=== PATIENT | female | born 1990 | race Caucasian/White ===

== ENCOUNTER 2017-09-24 13:01 | Outpatient (CLI) | payer BC ==
[~2017-09-24] VITALS: Ht 177.8 cm; Wt 109.1 kg
[2017-09-24] MEDS ORDERED: PREN1TAB60 PO (13:10)
[2017-09-24 13:11] VITALS: BP 121/76
[2017-09-24] MEDS ORDERED: METOCLOPRAMIDE 5 MG/ML, 2ML IVPush PRN (14:00)
[2017-09-24] MEDS ORDERED: D5%-LACTATED RINGERS 1,000 ML IV SCH (14:00)
[2017-09-24] MEDS ORDERED: LACTATED RINGERS 1,000 ML IVBOLUS ONE (14:00)
[2017-09-24 14:24] LABS: BASOPHILS # (AUTO) 0.02 x10^3/uL (0-0.1); BASOPHILS % (AUTO) 0 % (0-1); EOSINOPHILS # (AUTO) 0.07 x10^3/uL (0-0.4); EOSINOPHILS % (AUTO) 1 % (1-7); LYMPHOCYTES # (AUTO) 1.14 x10^3/uL (1-3.4); LYMPHOCYTES % (AUTO) 15 % (22-44); MD NO; MEAN CORPUSCULAR HEMOGLOBIN 30.2 pg (27.0-34.8); MEAN CORPUSCULAR HGB CONC 33.6 g/dL (32.4-35.8); MEAN CORPUSCULAR VOLUME 89.8 fL (80-100); MEAN PLATELET VOLUME 8.8 fL (7.4-10.4); MONOCYTES # (AUTO) 0.36 x10^3/uL (0.2-0.8); MONOCYTES % (AUTO) 5 % (2-9); NEUTROPHILS # (AUTO) 6.23 x10^3/uL (1.8-6.8); NEUTROPHILS % (AUTO) 80 % (42-75); PLATELET COUNT 209 x10^3/uL (130-400); RED BLOOD COUNT 4.25 x10^6/uL (3.82-5.3); RED CELL DISTRIBUTION WIDTH 13.3 % (9.6-15.2)
[2017-09-24 14:26] LABS: ALBUMIN 2.6 g/dL (3.4-5.0); ANION GAP 10 mmol/L (5-15); CALCIUM 7.8 mg/dL (8.5-10.1); CHLORIDE 105 mmol/L (98-107)
[2017-09-24 14:29] LABS: ALANINE AMINOTRANSFERASE 35 U/L (12-78); ALKALINE PHOSPHATASE 61 U/L (45-117); BILIRUBIN,TOTAL 0.4 mg/dL (0.2-1.0); CREATININE 0.49 mg/dL (0.55-1.02); TOTAL PROTEIN 6.7 g/dL (6.4-8.2)
[2017-09-24 15:22] LABS: MICROSCOPIC INDICATED
[2017-09-24] MEDS ORDERED: CEFAZOLIN 1,000 MG IVPB ONE (16:30)
[2017-09-24] MEDS ORDERED: CEFAZOLIN PMX 2GM/100ML 100 ML IVPB ONE (17:30)
[2017-09-24] MEDS ORDERED: CEFAZOLIN 1,000 MG in DEXTROSE 5% 50 ML IV ONE (17:30)
== END 2017-09-24 19:05 | disposition home or self-care (01) ==
LOC: LDOP 13:01
PROVIDERS: ATTEND Obstetrics & Gynecology
DX: O21.2 Late vomiting of pregnancy (principal); O26.893 Other specified pregnancy related conditions, third trimester; R19.7 Diarrhea, unspecified; Z3A.29 29 weeks gestation of pregnancy
CPT/HCPCS: 36415; 59025; 80053; 81001; 81003; 82731; 85025; 87086; 96360; 96361; J0690; J7120; 99201; G0463; J7121

== ENCOUNTER 2017-11-23 10:20 | Outpatient (CLI) | payer BC ==
[~2017-11-23] VITALS: Ht 177.8 cm; Wt 109.1 kg
[~2017-11-23 10:20] MED LIST: PREN1TAB60 PO
[2017-11-23 10:40] VITALS: BP 126/82
== END 2017-11-23 11:11 | disposition home or self-care (01) ==
LOC: LDOP 10:20
PROVIDERS: ATTEND Obstetrics & Gynecology
DX: O36.8130 Decreased fetal movements, third trimester, not applicable or unspecified (principal); Z3A.38 38 weeks gestation of pregnancy
CPT/HCPCS: 59025; 99211; G0463

== ENCOUNTER 2017-11-30 01:11 | Inpatient (IN) | payer BC ==
[~2017-11-30] VITALS: Ht 177.8 cm; Wt 113.0 kg
[2017-11-30] MEDS ORDERED: OXYTOCIN 30U/ 0.9% NaCL 500ML 500 ML IV ONE (01:29)
[2017-11-30] MEDS: LACTATED RINGERS 1,000 ML IV SCH ×4 (01:29→10:28)
[2017-11-30] MEDS ORDERED: SODIUM CITRATE/CITRIC ACID 30 ML UDC PO PRN (01:30)
[2017-11-30] MEDS ORDERED: FENTANYL PF 100 MCG/2ML IVPush PRN (01:30)
[2017-11-30] MEDS ORDERED: METOCLOPRAMIDE 5 MG/ML, 2ML IVPush PRN (01:30)
[2017-11-30] MEDS ORDERED: ONDANSETRON 2MG/ML, 2ML IVPush PRN (01:30)
[2017-11-30] MEDS ORDERED: FENTANYL PF 100 MCG/2ML IV PRN (01:30)
[2017-11-30] MEDS ORDERED: CALCIUM CARBONATE 500 MG TAB.CHEW PO PRN (01:30)
[2017-11-30] MEDS ORDERED: NEWBORN KIT ONE (01:34)
[2017-11-30] MEDS ORDERED: FENTANYL PF 100 MCG/2ML ONE (01:50)
[2017-11-30 02:01] LABS: BASOPHILS # (AUTO) 0.04 x10^3/uL (0-0.1); BASOPHILS % (AUTO) 0 % (0-1); EOSINOPHILS # (AUTO) 0.12 x10^3/uL (0-0.4); EOSINOPHILS % (AUTO) 1 % (1-7); LYMPHOCYTES # (AUTO) 2.72 x10^3/uL (1-3.4); LYMPHOCYTES % (AUTO) 21 % (22-44); MD NO; MEAN CORPUSCULAR HEMOGLOBIN 30.6 pg (27.0-34.8); MEAN CORPUSCULAR HGB CONC 34.3 g/dL (32.4-35.8); MEAN CORPUSCULAR VOLUME 89.1 fL (80-100); MEAN PLATELET VOLUME 8.9 fL (7.4-10.4); MONOCYTES # (AUTO) 0.56 x10^3/uL (0.2-0.8); MONOCYTES % (AUTO) 4 % (2-9); NEUTROPHILS # (AUTO) 9.32 x10^3/uL (1.8-6.8); NEUTROPHILS % (AUTO) 73 % (42-75); PLATELET COUNT 228 x10^3/uL (130-400); RED BLOOD COUNT 4.33 x10^6/uL (3.82-5.3); RED CELL DISTRIBUTION WIDTH 14.2 % (9.6-15.2)
[2017-11-30 02:05] VITALS: BP 144/98
[2017-11-30] MEDS ORDERED: FENTANYL/BUPIV./NS/PF 250 ML EPIDCONT SCH (02:28)
[2017-11-30] MEDS ORDERED: NALOXONE 0.4 MG/ML, 1ML IVPush PRN (02:30)
[2017-11-30] MEDS ORDERED: EPHEDRINE 50 MG/ML, 1ML IVPush PRN (02:30)
[2017-11-30] MEDS ORDERED: LACTATED RINGERS 1,000 ML IVBOLUS PRN (02:30)
[2017-11-30] MEDS ORDERED: FENTANYL/BUPIV./NS/PF 250 ML EPIDCONT ONE (02:31)
[2017-11-30] MEDS ORDERED: BUPIVACAINE/PF 0.25% ONE (02:31)
[2017-11-30] MEDS ORDERED: OXYTOCIN 30U/ 0.9% NaCL 500ML 500 ML ONE ×2 (03:21→17:34)
[2017-11-30] MEDS: D5%-LACTATED RINGERS 1,000 ML IV SCH ×2 (07:30→09:29)
[2017-11-30] MEDS ORDERED: ONDANSETRON ODT 4 MG ONE (13:23)
[2017-11-30] MEDS: IBUPROFEN 600 MG TABLET PO PRN ×2 (15:40→23:00)
[2017-11-30] MEDS ORDERED: IBUPROFEN 600 MG TABLET ONE (15:42)
[2017-11-30] MEDS: OXYTOCIN 30U/ 0.9% NaCL 500ML 500 ML IV SCH (15:43)
[2017-11-30] MEDS ORDERED: MISOPROSTOL 200 MCG TABLET PR PRN (16:00)
[2017-11-30] MEDS ORDERED: ACETAMINOPHEN 325 MG TABLET PO PRN ×2 (16:00)
[2017-11-30] MEDS ORDERED: HYDROcodone/APAP 5/325 TABLET PO PRN ×2 (16:00)
[2017-11-30] MEDS ORDERED: ONDANSETRON ODT 4 MG PO ONE (16:30)
[2017-11-30 17:53] VITALS: BP 117/77
[2017-11-30 19:25] VITALS: BP 128/78
[2017-11-30] MEDS: DOCUSATE 100 MG CAPSULE PO PRN (22:59)
[2017-11-30 23:46] VITALS: BP 95/58
[2017-12-01] MEDS: OXYTOCIN 30U/ 0.9% NaCL 500ML 500 ML IV SCH ×2 (01:43→11:43)
[2017-12-01 03:00] VITALS: BP 114/74
[2017-12-01 06:09] LABS: BASOPHILS # (AUTO) 0.03 x10^3/uL (0-0.1); BASOPHILS % (AUTO) 0 % (0-1); EOSINOPHILS # (AUTO) 0.07 x10^3/uL (0-0.4); EOSINOPHILS % (AUTO) 1 % (1-7); LYMPHOCYTES # (AUTO) 2.57 x10^3/uL (1-3.4); LYMPHOCYTES % (AUTO) 18 % (22-44); MD NO; MEAN CORPUSCULAR HEMOGLOBIN 30.2 pg (27.0-34.8); MEAN CORPUSCULAR HGB CONC 33.7 g/dL (32.4-35.8); MEAN CORPUSCULAR VOLUME 89.6 fL (80-100); MEAN PLATELET VOLUME 8.5 fL (7.4-10.4); MONOCYTES # (AUTO) 0.52 x10^3/uL (0.2-0.8); MONOCYTES % (AUTO) 4 % (2-9); NEUTROPHILS # (AUTO) 10.98 x10^3/uL (1.8-6.8); NEUTROPHILS % (AUTO) 77 % (42-75); PLATELET COUNT 168 x10^3/uL (130-400); RED CELL DISTRIBUTION WIDTH 14.2 % (9.6-15.2)
[2017-12-01] MEDS: IBUPROFEN 600 MG TABLET PO PRN ×2 (07:16→15:19)
[2017-12-01] MEDS: DOCUSATE 100 MG CAPSULE PO PRN (07:16)
[2017-12-01 08:00] VITALS: BP 123/79
[2017-12-01] MEDS ORDERED: IBUP-1222 PO (08:16)
[2017-12-01] MEDS ORDERED: PRENATAL VIT/IRON/FA 1 EACH TABLET PO SCH (09:00)
[2017-12-01 12:00] VITALS: BP 130/89
== END 2017-12-01 17:35 | disposition home or self-care (01) | DRG 775 ==
LOC: LDOP 01:11 → LDIP 01:42 → 2NW 17:40
PROVIDERS: ADMIT Obstetrics & Gynecology; ATTEND Obstetrics & Gynecology
PROC: 10E0XZZ Delivery of Products of Conception, External Approach (ICD-10-PCS; principal; 2017-11-30)
PROC: 0KQM0ZZ Repair Perineum Muscle, Open Approach (ICD-10-PCS; 2017-11-30)
PROC: 3E0R3BZ Introduction of Anesthetic Agent into Spinal Canal, Percutaneous Approach (ICD-10-PCS; 2017-11-30)
PROC: 00HU33Z Insertion of Infusion Device into Spinal Canal, Percutaneous Approach (ICD-10-PCS; 2017-11-30)
DX: O70.1 Second degree perineal laceration during delivery (principal); Z37.0 Single live birth; Z3A.39 39 weeks gestation of pregnancy
CPT/HCPCS: 36415; 85025; 86850; 86900; J3010; Q0162; J2590; J7120; J7121